=== PATIENT | female | born 1990 | race African-American/Black ===

== ENCOUNTER 2022-09-27 02:03 | Emergency (ER) | payer MEDICAID ==
[~2022-09-27] VITALS: Ht 162.6 cm; Wt 145.0 kg
[2022-09-27] MEDS ORDERED: AZIT250T9 PO (05:41)
[2022-09-27 06:21] VITALS: BP 120/77
== END 2022-09-27 06:32 | disposition home or self-care (01) ==
LOC: ER 02:03
DX: J06.9 Acute upper respiratory infection, unspecified (principal)
CPT/HCPCS: 71045; 87804